=== PATIENT | female | born 1990 | race Caucasian/White ===

== ENCOUNTER 2022-01-24 11:46 | Inpatient (IN) ==
[2022-01-24] MEDS ORDERED: OXYTOCIN 30 UNITS/500 ML BAG IV PRN ×2 (12:20→20:40)
--- NOTE | 2022-01-24 12:22 | History & Physical Report ---
Date of Service January 24, 2022 Assessment & Plan (1) Encounter for supervision of normal intrauterine in primigravida, antepartum: Plan: Sterile spec exam performed pooling is present nitrazine present patient is obviously ruptured her cervix is examined found to be long thick close palpated as vertex -3 station The patient expressed her plan and also does not wish intervention at this early stage with regard to augmentation of labor she is feeling some minimal contractions we discussed following this for now and reassessing later we discussed the risks of prolonged rupture membranes which can include infection both of the fetus and mother she will be admitted COVID swabbed as per protocol History of Present Illness Primary Care Provider: NO PCP LUIS Calculator Estimated Delivery Date Method Current WG Current Estimate 02/02/22 LMP (Certain) 37w 6d LMP: 04/28/21 : 1 Full term: 0 Premature: 0 Total Number of Induced Abortions: 0 Total Number of Spontaneous Abortions: 0 Ectopics: 0 Multiple births: 0 Number of Living Children: 0 and Delivery Plans COVID POSITIVE 06/28/21 (SX STARTED 06/22/21) Pfizer COVID vaccine #1 on 09/22/20 Pfizer COVID vaccine #2 on 10/13/20 Allergies Allergy/AdvReac Type Severity Reaction Status Date / Time No Known Allergies Allergy Verified 01/18/22 14:18 Home Medications Medication Instructions Recorded Confirmed Type prenat.vits,adriel,aix-giab-yfdea PO 10/18/21 01/18/22 History breast pump #1 ea 11/30/21 01/18/22 Rx Patient History Medical History (Updated 06/22/21 @ 11:31 by Joyce SUNG RN) Brain concussion Chicken pox Lyme disease Migraines Surgical History [place] teeth extracted Family History (Updated 06/22/21 @ 11:32 by Joyce SUNG RN) Aunt Breast cancer paternal Hypertension Stroke Grandfather (Maternal) Colorectal cancer Grandmother (Paternal) FH: kidney cancer Afib Grandmother (Maternal) Afib Hypertension Diabetes Mother Irregular heart rhythm Hypertension Grandfather (Paternal) Parkinson disease Denies family history of Ovarian cancer Prostate cancer Lung cancer Social History (Updated 06/22/21 @ 11:00 by Joyce E MCCLINTIC, RN) Smoking Status: Never smoker Hx Alcohol Use: Yes Alcohol Intake Frequency Comment: 1 every other week Hx Substance Use: No Preferred Language: Samoan Communication Ability: Effective marital status: marital status details: Angus Truong (29) [phone] Current Living Situation: Significant Other Current Living Situation Comment: and 1 dog current occupational status: employed current occupation: [employer] Feels Safe at Home: Yes Results & Data ([facility]) Vital Signs (Past 12 Hours) Vital Signs Pulse BP 01/24/22 12:09 101 H 121/71 Coding Level of Care Code None Diagnoses Encounter for supervision of normal intrauterine in primigravida, antepartum Z34.00
[2022-01-24 12:41] LABS: Hematocrit (blood only) 34.2 % (34.1-44.9); Hemoglobin 11.3 g/dl (12.0-16.0); Mean Corpuscular Hemoglobin 29.7 pg (25.0-34.0); Mean Corpuscular Volume 89.8 fL (80.0-100.0); Mean Platelet Volume 9.6 fL (9.4-12.3); Platelet Count 287 K/uL (130-400); RDW Coefficient of Variation 13.5 % (11.5-14.5); RDW Standard Deviation 44.4 fL (36.4-46.3); Red Blood Count 3.81 M/uL (3.93-5.22); White Blood Count 13.86 K/ul (4.8-10.8)
--- NOTE | 2022-01-24 16:41 | Labor Progress Brief Note ---
Date of Service January 24, 2022 Still declining intervention at this stage heart rate is category 1 Assessment & Plan Admission and Anticipated Discharge Date Admission Date: January 24, 2022 Results & Data ([facility]) Vital Signs (Past 12 Hours) Vital Signs Temp Pulse Resp BP 01/24/22 14:00 97.7 F 18 01/24/22 15:56 98.2 F 82 18 112/69 01/24/22 14:00 18 01/24/22 14:00 97.7 F 18 01/24/22 12:09 101 H 121/71 01/24/22 12:09 98.2 F 18 Coding Level of Care Code None
--- NOTE | 2022-01-24 19:03 | Labor Progress Brief Note ---
Date of Service January 24, 2022 Patient has been ruptured membranes since 830 this morning she has walked around as she has not desired augmentation at this stage we sat down and discussed the situation she is not having medically contraction despite ambulating fairly well she is still leaking clear fluid there is no signs of chorioamnionitis and she is GBS negative I recommended augmentation I discussed the option of Cytotec p.o. versus IV Pitocin discussed the risks and benefits I also discussed the risks of infection with prolonged rupture of membranes they understand the recommendations and will think about this Assessment & Plan Admission and Anticipated Discharge Date Admission Date: January 24, 2022 Results & Data ([facility]) Vital Signs (Past 12 Hours) Vital Signs Temp Pulse Resp BP 01/24/22 14:00 97.7 F 18 01/24/22 18:00 16 01/24/22 18:00 97.9 F 16 01/24/22 17:49 85 129/71 01/24/22 15:56 98.2 F 82 18 112/69 01/24/22 14:00 18 01/24/22 14:00 97.7 F 18 01/24/22 12:09 101 H 121/71 01/24/22 12:09 98.2 F 18 Coding Level of Care Code None
[2022-01-24] MEDS: LACTATED RINGER'S 1,000 ML IV PRN (21:09)
[2022-01-25] MEDS: LACTATED RINGER'S 1,000 ML IV PRN ×3 (05:10→14:44)
[2022-01-25] MEDS ORDERED: ePHEDrine sulfate 50 MG/ML AMP ONE (05:23)
[2022-01-25] MEDS ORDERED: LIDOCAINE 2%/EPINEPHRINE 1:200,000 20 ML SDV ONE (05:24)
[2022-01-25] MEDS ORDERED: SODIUM CHLORIDE 0.9% INJ 10 ML VIAL ONE (05:24)
[2022-01-25] MEDS ORDERED: fentaNYL 2MCG/ML ROPIVACAINE 1.25MG/ML 100 ML BAG EPI ONE (05:24)
[2022-01-25] MEDS ORDERED: BUPIVACAINE 0.25% 30 ML VIAL ONE (05:24)
[2022-01-25] MEDS ORDERED: fentaNYL citrate 100 MCG/2 ML VIAL ONE (05:24)
--- NOTE | 2022-01-25 05:46 | Anesthesiology Consultation ---
Date of Service January 25, 2022 Assessment & Plan (1) Encounter for pre-operative examination: Chart Review Chart Review: Acceptable Risk for Labor Epidural History Height/Weight Height: 5 ft 5 in Weight: 92.533 kg Allergies Allergy/AdvReac Type Severity Reaction Status Date / Time No Known Allergies Allergy Verified 01/24/22 13:30 Medications Home Medications Medication Instructions Recorded Confirmed Last Taken breast pump #1 ea 11/30/21 01/18/22 Unknown prenat.vits,adriel,iyc-awvy-ybfbe 1 tab PO DAILY 01/24/22 01/24/22 01/24/22 11:00 Active Medications Generic Name Dose Route Start Last Admin Trade Name Freq PRN Reason Stop Dose Admin Lactated Ringer's 1,000 mls @ 125 mls/hr 01/24/22 12:20 01/25/22 05:10 Lr IV 01/26/22 12:19 125 mls/hr .Q8H PRN Administration L&D Protocol Protocol Oxytocin 30 units in 500 mls @ 6 mls/hr 01/24/22 20:40 01/25/22 05:00 Pitocin IV 01/26/22 20:39 0.42 units/hr .Q24H PRN 7 mls/hr Labor Induction/Augmentation Titration Protocol 0.36 UNITS/HR Past Medical History Medical History Brain concussion Chicken pox Lyme disease Migraines Past Family History Family History Aunt Breast cancer paternal Hypertension Stroke Grandfather (Maternal) Colorectal cancer Grandmother (Paternal) FH: kidney cancer Afib Grandmother (Maternal) Afib Hypertension Diabetes Mother Irregular heart rhythm Hypertension Grandfather (Paternal) Parkinson disease Denies family history of Ovarian cancer Prostate cancer Lung cancer Past Surgical History Surgical History [place] teeth extracted Social History Smoking Status: Never smoker Do You Dip or Chew Tobacco: No Hx Alcohol Use: Yes Hx Substance Use: No substance use type: does not use Physical Exam Vital Signs Last Vital Signs Temp 36.6 C 01/25/22 05:00 Pulse 64 01/25/22 04:52 Resp 18 01/25/22 01:32 BP 101/69 01/25/22 04:52 Testing Laboratory Results 01/24/22 12:32
[2022-01-25] MEDS ORDERED: NALOXONE HCL 0.4 MG/1 ML VIAL/CARP IV PRN (06:12)
[2022-01-25] MEDS ORDERED: ONDANSETRON INJ 2 MG/ML 2 ML VIAL IV PRN (06:12)
[2022-01-25] MEDS ORDERED: NALOXONE HCL 1 MG in SODIUM CHLORIDE 0.9% 1000ML 1,000 ML IV PRN (06:12)
[2022-01-25] MEDS ORDERED: ePHEDrine sulfate 50 MG/ML AMP IV PRN (06:12)
[2022-01-25] MEDS ORDERED: fentaNYL 2MCG/ML ROPIVACAINE 1.25MG/ML 100 ML BAG EPI PRN (06:12)
--- NOTE | 2022-01-25 07:23 | Labor Progress Brief Note ---
Date of Service January 25, 2022 Patient did agree to Pitocin last night this was started requested epidural and she is now comfortable the patient has declined cervical checks since recommend checking her cervix when she is fully comfortable with the epidural Assessment & Plan Admission and Anticipated Discharge Date Admission Date: January 24, 2022 Results & Data ([facility]) Vital Signs (Past 12 Hours) Vital Signs Temp Pulse Resp BP Pulse Ox 01/25/22 07:20 69 98 01/25/22 07:15 76 99 01/25/22 07:10 75 99 01/25/22 07:09 63 118/63 01/25/22 07:05 78 98 01/25/22 07:00 76 98 01/25/22 06:55 76 97 01/25/22 06:54 67 111/62 01/25/22 06:50 79 99 01/25/22 06:45 81 100 01/25/22 06:40 71 98 01/25/22 06:35 74 114/69 98 01/25/22 06:32 73 105/66 01/25/22 06:30 79 100 01/25/22 06:29 79 107/64 01/25/22 06:25 74 99 01/25/22 06:26 115 H 105/61 01/25/22 06:23 78 102/65 01/25/22 06:20 100 01/25/22 06:20 75 01/25/22 06:20 71 100/68 01/25/22 06:17 81 106/63 01/25/22 06:15 73 100 01/25/22 06:14 71 100/55 L 01/25/22 06:11 69 100/59 L 01/25/22 06:10 68 100 01/25/22 06:08 71 99/55 L 01/25/22 06:05 78 99 01/25/22 06:02 82 108/68 01/25/22 06:00 86 100 01/25/22 05:59 93 H 110/72 01/25/22 05:55 85 100 01/25/22 05:53 83 111/78 01/25/22 05:50 100 01/25/22 05:50 87 01/25/22 05:50 78 113/73 01/25/22 05:00 97.9 F 01/25/22 04:52 64 101/69 01/25/22 04:21 68 106/56 L 01/25/22 03:51 70 116/60 01/25/22 03:21 77 110/74 01/25/22 02:52 98.1 F 01/25/22 02:53 89 116/66 01/25/22 02:25 85 111/66 01/25/22 01:51 86 102/65 01/25/22 01:32 18 01/25/22 01:32 98.1 F 18 01/25/22 01:21 88 115/69 01/25/22 00:50 76 111/68 01/25/22 00:24 87 118/58 L 01/24/22 23:51 87 114/65 01/24/22 23:20 78 103/64 01/24/22 21:10 18 01/24/22 21:10 98.1 F 18 01/24/22 23:00 18 01/24/22 23:00 97.3 F L 18 01/24/22 22:52 77 110/69 01/24/22 22:20 82 110/70 01/24/22 21:50 77 110/63 Coding Level of Care Code None
--- NOTE | 2022-01-25 09:37 | Labor Progress Brief Note ---
Date of Service January 25, 2022 Subjective Pt comfortable w/ epidural. Decel was noted on pit at 9, pit was turned off and fetus recovered. Assessment & Plan (1) PROM (premature rupture of membranes): Plan: 31 y/o G1 at 38 6/7 wga admitted w/ prom VSS Fetus now cat 1 after decel PROM - pt desired minimal intervention yesterday declining cervical checks. She did accept pitocin last evening and epidural this AM. SVE is as above. Reviewed decel with pt as well as clinical stability currently, no obvious signs of chorio. Discussed rec to continue augmentation as I don't think she will likely progress on her own at this point as it has been >24hrs since water broke and she is in agreement to continue. Discussed as she is so far out from rom, there is possibility that baby may not tolerate the stress of contractions and she is aware as well. I reviewed plan with her and she did note may want a second opinion if CS recommended. Discussed if it is an emergency situation, I would not recommend discussion as it affects the wellbeing of her child. Discussed if it is a matter of tolerating labor or lack of progression, I am happy to continue discussing but there is not another provider administrative professional and she verbalized understanding as well. Will continue pit for now and continue monitoring GBS neg epidural in place Admission and Anticipated Discharge Date Admission Date: January 24, 2022 Physical Exam Genitourinary: Manual OB Exam: + cervical dilation 3 cm, + cervical effacement 50% and + station -2 OB Exam Monitor Tracing: + external FHT monitor used, + external uterine monitor used (q8 with pitocin off) and + category I (135/mod/+accel/-decel) Results & Data ([facility]) Vital Signs (Past 12 Hours) Vital Signs Temp Pulse Resp BP Pulse Ox 01/25/22 07:00 98.1 F 18 01/25/22 09:25 75 98 01/25/22 09:24 74 105/64 01/25/22 09:20 71 99 01/25/22 09:19 18 01/25/22 09:19 97.7 F 18 01/25/22 09:15 78 98 01/25/22 09:10 74 97/53 L 100 01/25/22 09:05 74 100 01/25/22 09:00 68 100 01/25/22 08:55 100 01/25/22 08:55 75 01/25/22 08:55 63 101/60 01/25/22 08:50 74 100 01/25/22 08:45 72 100 01/25/22 08:40 80 100 01/25/22 08:38 65 92/54 L 01/25/22 08:35 75 100 01/25/22 08:30 71 100 01/25/22 08:25 65 87/52 L 100 01/25/22 08:20 67 100 01/25/22 08:15 79 100 01/25/22 08:14 70 104/56 L 01/25/22 08:10 70 97 01/25/22 08:09 72 87/52 L 01/25/22 08:05 72 97 01/25/22 08:00 97 01/25/22 08:00 71 01/25/22 08:00 73 94 01/25/22 07:55 73 98 01/25/22 07:53 63 90/50 L 01/25/22 07:50 70 97 01/25/22 07:45 80 97 01/25/22 07:40 74 99 01/25/22 07:39 72 92/54 L 01/25/22 07:35 79 97 01/25/22 07:30 75 18 98 01/25/22 07:25 98 01/25/22 07:25 67 01/25/22 07:25 65 91/51 L 01/25/22 07:20 69 98 01/25/22 07:15 76 99 01/25/22 07:10 75 99 01/25/22 07:09 63 118/63 01/25/22 07:05 78 98 01/25/22 07:00 76 18 98 01/25/22 06:55 76 97 01/25/22 06:54 67 111/62 01/25/22 06:50 79 99 01/25/22 06:45 81 100 01/25/22 06:40 71 98 01/25/22 06:35 74 114/69 98 01/25/22 06:32 73 105/66 01/25/22 06:30 79 100 01/25/22 06:29 79 107/64 01/25/22 06:25 74 99 01/25/22 06:26 115 H 105/61 01/25/22 06:23 78 102/65 01/25/22 06:20 100 01/25/22 06:20 75 01/25/22 06:20 71 100/68 01/25/22 06:17 81 106/63 01/25/22 06:15 73 100 01/25/22 06:14 71 100/55 L 01/25/22 06:11 69 100/59 L 01/25/22 06:10 68 100 01/25/22 06:08 71 99/55 L 01/25/22 06:05 78 99 01/25/22 06:02 82 108/68 01/25/22 06:00 86 100 01/25/22 05:59 93 H 110/72 01/25/22 05:55 85 100 01/25/22 05:53 83 111/78 01/25/22 05:50 100 01/25/22 05:50 87 01/25/22 05:50 78 113/73 01/25/22 05:00 97.9 F 01/25/22 04:52 64 101/69 01/25/22 04:21 68 106/56 L 01/25/22 03:51 70 116/60 01/25/22 03:21 77 110/74 01/25/22 02:52 98.1 F 01/25/22 02:53 89 116/66 01/25/22 02:25 85 111/66 01/25/22 01:51 86 102/65 01/25/22 01:32 18 01/25/22 01:32 98.1 F 01/25/22 01:21 88 115/69 01/25/22 00:50 76 111/68 01/25/22 00:24 87 118/58 L 01/24/22 23:51 87 114/65 01/24/22 23:20 78 103/64 01/24/22 23:00 18 01/24/22 23:00 97.3 F L 18 01/24/22 22:52 77 110/69 01/24/22 22:20 82 110/70 01/24/22 21:50 77 110/63 Coding Level of Care Code None Diagnoses PROM (premature rupture of membranes) O42.90
--- NOTE | 2022-01-25 12:35 | Labor Progress Brief Note ---
Date of Service January 25, 2022 Subjective Pt comfortable Assessment & Plan (1) PROM (premature rupture of membranes): Plan: 31 y/o G1 at 38 6/7 wga admitted w/ prom VSS Fetus cat 2 but reassuring PROM - pit just increased to 7, not much change in cervix but certainly no where near adequate. Will continue induction as baby tolerates it GBS neg epidural in place Admission and Anticipated Discharge Date Admission Date: January 24, 2022 Physical Exam Genitourinary: Manual OB Exam: + cervical dilation 3 cm, + cervical effacement 50% and + station -2 OB Exam Monitor Tracing: + external FHT monitor used, + external uterine monitor used (q5) and + category II (135/mod/+accel/early and intermittent variables noted) Results & Data ([facility]) Vital Signs (Past 12 Hours) Vital Signs Temp Pulse Resp BP Pulse Ox 01/25/22 10:40 98.2 F 18 01/25/22 07:00 98.1 F 18 01/25/22 12:30 65 97 01/25/22 12:25 75 97 01/25/22 12:23 88 99/60 L 01/25/22 12:20 73 98 01/25/22 12:15 67 97 01/25/22 12:10 98 H 96 01/25/22 12:09 67 102/60 01/25/22 12:05 75 96 01/25/22 12:00 76 96 01/25/22 11:55 69 97 01/25/22 11:54 66 104/65 01/25/22 11:50 81 97 01/25/22 11:45 88 96 01/25/22 11:40 82 97 01/25/22 11:39 72 106/67 01/25/22 11:35 85 97 01/25/22 11:30 79 96 01/25/22 11:25 75 96 01/25/22 11:23 84 116/66 01/25/22 11:20 78 97 01/25/22 11:15 73 99 01/25/22 11:10 67 98 01/25/22 11:09 72 99/58 L 01/25/22 11:05 74 99 01/25/22 11:00 75 99 01/25/22 10:55 68 99 01/25/22 10:54 72 97/55 L 01/25/22 10:50 73 98 01/25/22 10:45 80 97 01/25/22 10:40 70 98 01/25/22 10:39 93 H 111/57 L 01/25/22 10:35 81 98 01/25/22 10:30 87 18 99 01/25/22 10:25 78 98 01/25/22 10:23 82 108/64 01/25/22 10:20 81 98 01/25/22 10:15 82 99 01/25/22 10:10 79 99 01/25/22 10:08 93 H 105/70 01/25/22 10:05 94 H 99 01/25/22 10:00 77 18 97 01/25/22 09:55 71 98 01/25/22 09:53 71 103/63 01/25/22 09:50 73 97 01/25/22 08:00 18 01/25/22 08:00 18 01/25/22 09:45 78 100 01/25/22 09:40 83 98 01/25/22 09:38 85 112/76 01/25/22 09:35 76 99 01/25/22 09:30 68 18 98 01/25/22 09:25 75 98 01/25/22 09:24 74 105/64 01/25/22 09:20 71 99 01/25/22 09:19 18 01/25/22 09:19 97.7 F 18 01/25/22 09:15 78 98 01/25/22 09:10 74 97/53 L 100 01/25/22 09:05 74 100 01/25/22 09:00 68 18 100 01/25/22 08:55 100 01/25/22 08:55 75 01/25/22 08:55 63 101/60 01/25/22 08:50 74 100 01/25/22 08:45 72 100 01/25/22 08:40 80 100 01/25/22 08:38 65 92/54 L 01/25/22 08:35 75 100 01/25/22 08:30 71 18 100 01/25/22 08:25 65 87/52 L 100 01/25/22 08:20 67 100 01/25/22 08:15 79 100 01/25/22 08:14 70 104/56 L 01/25/22 08:10 70 97 01/25/22 08:09 72 87/52 L 01/25/22 08:05 72 97 01/25/22 08:00 97 01/25/22 08:00 71 01/25/22 08:00 73 94 01/25/22 07:55 73 98 01/25/22 07:53 63 90/50 L 01/25/22 07:50 70 97 01/25/22 07:45 80 97 01/25/22 07:40 74 99 01/25/22 07:39 72 92/54 L 01/25/22 07:35 79 97 01/25/22 07:30 75 18 98 01/25/22 07:25 98 01/25/22 07:25 67 01/25/22 07:25 65 91/51 L 01/25/22 07:20 69 98 01/25/22 07:15 76 99 01/25/22 07:10 75 99 01/25/22 07:09 63 118/63 01/25/22 07:05 78 98 01/25/22 07:00 76 18 98 01/25/22 06:55 76 97 01/25/22 06:54 67 111/62 01/25/22 06:50 79 99 01/25/22 06:45 81 100 01/25/22 06:40 71 98 01/25/22 06:35 74 114/69 98 01/25/22 06:32 73 105/66 01/25/22 06:30 79 100 01/25/22 06:29 79 107/64 01/25/22 06:25 74 99 01/25/22 06:26 115 H 105/61 01/25/22 06:23 78 102/65 01/25/22 06:20 100 01/25/22 06:20 75 01/25/22 06:20 71 100/68 01/25/22 06:17 81 106/63 01/25/22 06:15 73 100 01/25/22 06:14 71 100/55 L 01/25/22 06:11 69 100/59 L 01/25/22 06:10 68 100 01/25/22 06:08 71 99/55 L 01/25/22 06:05 78 99 01/25/22 06:02 82 108/68 01/25/22 06:00 86 100 01/25/22 05:59 93 H 110/72 01/25/22 05:55 85 100 01/25/22 05:53 83 111/78 01/25/22 05:50 100 01/25/22 05:50 87 01/25/22 05:50 78 113/73 01/25/22 05:00 97.9 F 01/25/22 04:52 64 101/69 01/25/22 04:21 68 106/56 L 01/25/22 03:51 70 116/60 01/25/22 03:21 77 110/74 01/25/22 02:52 98.1 F 01/25/22 02:53 89 116/66 01/25/22 02:25 85 111/66 01/25/22 01:51 86 102/65 01/25/22 01:32 18 01/25/22 01:32 98.1 F 18 01/25/22 01:21 88 115/69 01/25/22 00:50 76 111/68 Coding Level of Care Code None Diagnoses PROM (premature rupture of membranes) O42.90
--- NOTE | 2022-01-25 14:44 | Labor Progress Brief Note ---
Date of Service January 25, 2022 Subjective Pt comfortable Assessment & Plan (1) PROM (premature rupture of membranes): Plan: 31 y/o G1 at 38 6/7 wga admitted w/ prom VSS Fetus cat 2 but still with mod variability, min variabiilty is intermittent PROM - pit at 13, some progress noted. Discussed I think ok to continue but discussed parameters that would be concerned about continuing and they verbalize understanding GBS neg epidural in place Admission and Anticipated Discharge Date Admission Date: January 24, 2022 Physical Exam Genitourinary: Manual OB Exam: + cervical dilation 4 cm, + cervical effacement 70% and + station -2 OB Exam Monitor Tracing: + external FHT monitor used, + external uterine monitor used (q4-5) and + category II (135/min-mod/+accel/early and intermittent variables noted) Results & Data ([facility]) Vital Signs (Past 12 Hours) Vital Signs Temp Pulse Resp BP Pulse Ox 01/25/22 10:40 98.2 F 18 01/25/22 07:00 98.1 F 18 01/25/22 14:40 83 97 01/25/22 14:35 87 99 01/25/22 14:30 88 98 01/25/22 14:25 98 01/25/22 14:25 84 01/25/22 14:25 80 119/61 01/25/22 14:20 86 97 01/25/22 14:16 18 01/25/22 14:16 18 01/25/22 14:15 87 97 01/25/22 14:10 84 97 01/25/22 14:08 86 110/63 01/25/22 14:05 81 96 01/25/22 14:00 73 18 97 01/25/22 13:55 84 97 01/25/22 13:54 77 112/63 01/25/22 13:50 83 97 01/25/22 13:45 89 96 01/25/22 13:40 77 97 01/25/22 13:39 73 115/59 L 01/25/22 13:35 77 97 01/25/22 13:29 98.4 F 01/25/22 13:30 76 18 97 01/25/22 13:25 97 01/25/22 13:25 76 01/25/22 13:25 76 116/64 01/25/22 13:20 89 97 01/25/22 13:15 86 98 01/25/22 13:10 73 98 01/25/22 13:08 81 110/70 01/25/22 13:05 81 97 01/25/22 13:00 84 18 98 01/25/22 12:55 79 97 01/25/22 12:54 73 109/67 01/25/22 12:50 83 97 01/25/22 12:45 80 97 01/25/22 12:40 98 01/25/22 12:40 81 01/25/22 12:40 68 100/57 L 01/25/22 12:39 18 01/25/22 12:39 98.2 F 18 01/25/22 12:35 77 97 01/25/22 12:30 65 18 97 01/25/22 12:25 75 97 01/25/22 12:23 88 99/60 L 01/25/22 12:20 73 98 01/25/22 12:15 67 97 01/25/22 12:10 98 H 96 01/25/22 12:09 67 102/60 01/25/22 12:05 75 96 01/25/22 12:00 76 18 96 01/25/22 11:55 69 97 01/25/22 11:54 66 104/65 01/25/22 11:50 81 97 01/25/22 11:45 88 96 01/25/22 11:40 82 97 01/25/22 11:39 72 106/67 01/25/22 11:35 85 97 01/25/22 11:30 79 18 96 01/25/22 11:25 75 96 01/25/22 11:23 84 116/66 01/25/22 11:20 78 97 01/25/22 11:15 73 99 01/25/22 11:10 67 98 01/25/22 11:09 72 99/58 L 01/25/22 11:05 74 99 01/25/22 11:00 75 99 01/25/22 10:55 68 99 01/25/22 10:54 72 97/55 L 01/25/22 10:50 73 98 01/25/22 10:45 80 97 01/25/22 10:40 70 98 01/25/22 10:39 93 H 111/57 L 01/25/22 10:35 81 98 01/25/22 10:30 87 18 99 01/25/22 10:25 78 98 01/25/22 10:23 82 108/64 01/25/22 10:20 81 98 01/25/22 10:15 82 99 01/25/22 10:10 79 99 01/25/22 10:08 93 H 105/70 01/25/22 10:05 94 H 99 01/25/22 10:00 77 18 97 01/25/22 09:55 71 98 01/25/22 09:53 71 103/63 01/25/22 09:50 73 97 01/25/22 08:00 18 01/25/22 08:00 18 01/25/22 09:45 78 100 01/25/22 09:40 83 98 01/25/22 09:38 85 112/76 01/25/22 09:35 76 99 01/25/22 09:30 68 18 98 01/25/22 09:25 75 98 01/25/22 09:24 74 105/64 01/25/22 09:20 71 99 01/25/22 09:19 18 01/25/22 09:19 97.7 F 18 01/25/22 09:15 78 98 01/25/22 09:10 74 97/53 L 100 01/25/22 09:05 74 100 01/25/22 09:00 68 18 100 01/25/22 08:55 100 01/25/22 08:55 75 01/25/22 08:55 63 101/60 01/25/22 08:50 74 100 01/25/22 08:45 72 100 01/25/22 08:40 80 100 01/25/22 08:38 65 92/54 L 01/25/22 08:35 75 100 01/25/22 08:30 71 18 100 01/25/22 08:25 65 87/52 L 100 01/25/22 08:20 67 100 01/25/22 08:15 79 100 01/25/22 08:14 70 104/56 L 01/25/22 08:10 70 97 01/25/22 08:09 72 87/52 L 01/25/22 08:05 72 97 01/25/22 08:00 97 01/25/22 08:00 71 01/25/22 08:00 73 94 01/25/22 07:55 73 98 01/25/22 07:53 63 90/50 L 01/25/22 07:50 70 97 01/25/22 07:45 80 97 01/25/22 07:40 74 99 01/25/22 07:39 72 92/54 L 01/25/22 07:35 79 97 01/25/22 07:30 75 18 98 01/25/22 07:25 98 01/25/22 07:25 67 01/25/22 07:25 65 91/51 L 01/25/22 07:20 69 98 01/25/22 07:15 76 99 01/25/22 07:10 75 99 01/25/22 07:09 63 118/63 01/25/22 07:05 78 98 01/25/22 07:00 76 18 98 01/25/22 06:55 76 97 01/25/22 06:54 67 111/62 01/25/22 06:50 79 99 01/25/22 06:45 81 100 01/25/22 06:40 71 98 01/25/22 06:35 74 114/69 98 01/25/22 06:32 73 105/66 01/25/22 06:30 79 100 01/25/22 06:29 79 107/64 01/25/22 06:25 74 99 01/25/22 06:26 115 H 105/61 01/25/22 06:23 78 102/65 01/25/22 06:20 100 01/25/22 06:20 75 01/25/22 06:20 71 100/68 01/25/22 06:17 81 106/63 01/25/22 06:15 73 100 01/25/22 06:14 71 100/55 L 01/25/22 06:11 69 100/59 L 01/25/22 06:10 68 100 01/25/22 06:08 71 99/55 L 01/25/22 06:05 78 99 01/25/22 06:02 82 108/68 01/25/22 06:00 86 100 01/25/22 05:59 93 H 110/72 01/25/22 05:55 85 100 01/25/22 05:53 83 111/78 08/03/22 05:50 100 01/25/22 05:50 87 01/25/22 05:50 78 113/73 01/25/22 05:00 97.9 F 01/25/22 04:52 64 101/69 01/25/22 04:21 68 106/56 L 01/25/22 03:51 70 116/60 01/25/22 03:21 77 110/74 01/25/22 02:52 98.1 F 01/25/22 02:53 89 116/66 Coding Level of Care Code None Diagnoses PROM (premature rupture of membranes) O42.90
--- NOTE | 2022-01-25 16:36 | Labor Progress Brief Note ---
Date of Service January 25, 2022 Subjective feels pressure Assessment & Plan (1) PROM (premature rupture of membranes): Plan: 31 y/o G1 at 38 6/7 wga admitted w/ prom VSS Fetus cat 2 but still with mod variability, min variabiilty is intermittent. Seems like decels are more early PROM - pit at 19, progress noted. Continue augmentation, ok to go above 20 as long as tolerated by fetus GBS neg epidural in place Admission and Anticipated Discharge Date Admission Date: January 24, 2022 Physical Exam Genitourinary: Manual OB Exam: + cervical dilation 5 cm, + cervical effacement 70% and + station -1 OB Exam Monitor Tracing: + external FHT monitor used, + external uterine monitor used (q3-5) and + category II (135/min-mod/+accel/early and intermittent variables noted) Results & Data ([facility]) Vital Signs (Past 12 Hours) Vital Signs Temp Pulse Resp BP Pulse Ox 01/25/22 10:40 98.2 F 18 01/25/22 07:00 98.1 F 18 01/25/22 16:30 79 99 01/25/22 16:25 75 99 01/25/22 16:24 75 107/70 01/25/22 16:20 77 98 01/25/22 16:15 72 99 01/25/22 16:10 78 99 01/25/22 16:08 86 113/63 01/25/22 16:05 88 98 01/25/22 16:00 77 18 98 01/25/22 15:55 77 98 01/25/22 15:53 68 106/57 L 01/25/22 15:50 78 97 01/25/22 15:45 73 98 01/25/22 15:40 73 98 01/25/22 15:39 72 117/60 01/25/22 15:35 75 97 01/25/22 15:30 79 18 98 01/25/22 15:25 75 99 01/25/22 15:20 75 98 01/25/22 15:15 81 97 01/25/22 15:10 71 98 01/25/22 15:09 70 115/56 L 01/25/22 15:05 82 97 01/25/22 15:00 83 18 97 01/25/22 14:55 79 97 01/25/22 14:54 77 111/55 L 01/25/22 14:50 84 97 01/25/22 14:45 80 97 01/25/22 14:41 18 01/25/22 14:41 98.2 F 18 01/25/22 14:40 83 97 01/25/22 14:35 87 99 01/25/22 14:30 88 18 98 01/25/22 14:25 98 01/25/22 14:25 84 01/25/22 14:25 80 119/61 01/25/22 14:20 86 97 01/25/22 14:16 18 01/25/22 14:16 18 01/25/22 14:15 87 97 01/25/22 14:10 84 97 01/25/22 14:08 86 110/63 01/25/22 14:05 81 96 01/25/22 14:00 73 18 97 01/25/22 13:55 84 97 01/25/22 13:54 77 112/63 01/25/22 13:50 83 97 01/25/22 13:45 89 96 01/25/22 13:40 77 97 01/25/22 13:39 73 115/59 L 01/25/22 13:35 77 97 01/25/22 13:29 98.4 F 01/25/22 13:30 76 18 97 01/25/22 13:25 97 01/25/22 13:25 76 01/25/22 13:25 76 116/64 01/25/22 13:20 89 97 01/25/22 13:15 86 98 01/25/22 13:10 73 98 01/25/22 13:08 81 110/70 01/25/22 13:05 81 97 01/25/22 13:00 84 18 98 01/25/22 12:55 79 97 01/25/22 12:54 73 109/67 01/25/22 12:50 83 97 01/25/22 12:45 80 97 01/25/22 12:40 98 01/25/22 12:40 81 01/25/22 12:40 68 100/57 L 01/25/22 12:39 18 01/25/22 12:39 98.2 F 18 01/25/22 12:35 77 97 01/25/22 12:30 65 18 97 01/25/22 12:25 75 97 08/03/22 12:23 88 99/60 L 01/25/22 12:20 73 98 01/25/22 12:15 67 97 01/25/22 12:10 98 H 96 01/25/22 12:09 67 102/60 01/25/22 12:05 75 96 01/25/22 12:00 76 18 96 01/25/22 11:55 69 97 01/25/22 11:54 66 104/65 01/25/22 11:50 81 97 01/25/22 11:45 88 96 01/25/22 11:40 82 97 01/25/22 11:39 72 106/67 01/25/22 11:35 85 97 01/25/22 11:30 79 18 96 01/25/22 11:25 75 96 01/25/22 11:23 84 116/66 01/25/22 11:20 78 97 01/25/22 11:15 73 99 01/25/22 11:10 67 98 01/25/22 11:09 72 99/58 L 01/25/22 11:05 74 99 01/25/22 11:00 75 99 01/25/22 10:55 68 99 01/25/22 10:54 72 97/55 L 01/25/22 10:50 73 98 01/25/22 10:45 80 97 01/25/22 10:40 70 98 01/25/22 10:39 93 H 111/57 L 01/25/22 10:35 81 98 01/25/22 10:30 87 18 99 01/25/22 10:25 78 98 01/25/22 10:23 82 108/64 01/25/22 10:20 81 98 01/25/22 10:15 82 99 01/25/22 10:10 79 99 01/25/22 10:08 93 H 105/70 01/25/22 10:05 94 H 99 01/25/22 10:00 77 18 97 01/25/22 09:55 71 98 01/25/22 09:53 71 103/63 01/25/22 09:50 73 97 01/25/22 08:00 18 01/25/22 08:00 18 01/25/22 09:45 78 100 01/25/22 09:40 83 98 01/25/22 09:38 85 112/76 01/25/22 09:35 76 99 01/25/22 09:30 68 18 98 01/25/22 09:25 75 98 01/25/22 09:24 74 105/64 01/25/22 09:20 71 99 01/25/22 09:19 18 01/25/22 09:19 97.7 F 18 01/25/22 09:15 78 98 01/25/22 09:10 74 97/53 L 100 01/25/22 09:05 74 100 01/25/22 09:00 68 18 100 01/25/22 08:55 100 01/25/22 08:55 75 01/25/22 08:55 63 101/60 01/25/22 08:50 74 100 01/25/22 08:45 72 100 01/25/22 08:40 80 100 01/25/22 08:38 65 92/54 L 01/25/22 08:35 75 100 01/25/22 08:30 71 18 100 01/25/22 08:25 65 87/52 L 100 01/25/22 08:20 67 100 01/25/22 08:15 79 100 01/25/22 08:14 70 104/56 L 01/25/22 08:10 70 97 01/25/22 08:09 72 87/52 L 01/25/22 08:05 72 97 01/25/22 08:00 97 01/25/22 08:00 71 01/25/22 08:00 73 94 01/25/22 07:55 73 98 01/25/22 07:53 63 90/50 L 01/25/22 07:50 70 97 01/25/22 07:45 80 97 01/25/22 07:40 74 99 01/25/22 07:39 72 92/54 L 01/25/22 07:35 79 97 01/25/22 07:30 75 18 98 01/25/22 07:25 98 01/25/22 07:25 67 01/25/22 07:25 65 91/51 L 01/25/22 07:20 69 98 01/25/22 07:15 76 99 01/25/22 07:10 75 99 01/25/22 07:09 63 118/63 01/25/22 07:05 78 98 01/25/22 07:00 76 18 98 01/25/22 06:55 76 97 01/25/22 06:54 67 111/62 01/25/22 06:50 79 99 01/25/22 06:45 81 100 01/25/22 06:40 71 98 01/25/22 06:35 74 114/69 98 01/25/22 06:32 73 105/66 01/25/22 06:30 79 100 01/25/22 06:29 79 107/64 01/25/22 06:25 74 99 01/25/22 06:26 115 H 105/61 01/25/22 06:23 78 102/65 01/25/22 06:20 100 01/25/22 06:20 75 01/25/22 06:20 71 100/68 01/25/22 06:17 81 106/63 01/25/22 06:15 73 100 01/25/22 06:14 71 100/55 L 01/25/22 06:11 69 100/59 L 01/25/22 06:10 68 100 01/25/22 06:08 71 99/55 L 01/25/22 06:05 78 99 01/25/22 06:02 82 108/68 01/25/22 06:00 86 100 01/25/22 05:59 93 H 110/72 01/25/22 05:55 85 100 01/25/22 05:53 83 111/78 01/25/22 05:50 100 01/25/22 05:50 87 01/25/22 05:50 78 113/73 01/25/22 05:00 97.9 F 01/25/22 04:52 64 101/69 Coding Level of Care Code None Diagnoses PROM (premature rupture of membranes) O42.90
--- NOTE | 2022-01-25 18:37 | Labor Progress Brief Note ---
Date of Service January 25, 2022 Subjective bloody show noted Assessment & Plan (1) PROM (premature rupture of membranes): Plan: 31 y/o G1 at 38 6/7 wga admitted w/ prom VSS Fetus cat 2 but still reassuring PROM - pit at 19, good progress. Will recheck in 30-1hr and see if complete GBS neg epidural in place Admission and Anticipated Discharge Date Admission Date: January 24, 2022 Physical Exam Genitourinary: Manual OB Exam: + cervical dilation (9.5), + cervical effacement 90% and + station + 1 OB Exam Monitor Tracing: + external FHT monitor used, + external uterine monitor used (q3-5) and + category II (135/min- mod/+accel/early and intermittent variables noted) Results & Data ([facility]) Vital Signs (Past 12 Hours) Vital Signs Temp Pulse Resp BP Pulse Ox 01/25/22 10:40 98.2 F 18 01/25/22 07:00 98.1 F 18 01/25/22 18:30 91 H 18 99 01/25/22 18:25 98 H 108/56 L 97 01/25/22 18:20 73 97 01/25/22 18:15 77 97 01/25/22 18:10 86 129/56 L 97 01/25/22 18:07 18 01/25/22 18:07 98.6 F 18 01/25/22 18:05 90 98 01/25/22 18:00 87 18 97 01/25/22 17:55 70 97 01/25/22 17:53 66 108/62 01/25/22 17:50 71 96 01/25/22 17:45 74 96 01/25/22 17:40 85 98 01/25/22 17:35 85 98 01/25/22 17:30 71 97 01/25/22 17:25 89 99 01/25/22 17:24 64 106/62 01/25/22 17:20 75 98 01/25/22 17:15 66 98 01/25/22 17:10 80 98 01/25/22 17:08 71 89/53 L 01/25/22 17:05 67 99 01/25/22 17:00 70 97 01/25/22 16:55 64 97 01/25/22 16:53 64 91/52 L 01/25/22 16:50 72 98 08/03/22 16:45 70 98 01/25/22 16:40 70 98 01/25/22 16:39 71 91/50 L 01/25/22 16:35 76 97 01/25/22 16:30 79 18 99 01/25/22 16:25 75 99 01/25/22 16:24 75 107/70 01/25/22 16:20 77 98 01/25/22 16:15 72 99 01/25/22 16:10 78 99 01/25/22 16:08 86 113/63 01/25/22 16:05 88 98 01/25/22 16:00 77 18 98 01/25/22 15:55 77 98 01/25/22 15:53 68 106/57 L 01/25/22 15:50 78 97 01/25/22 15:45 73 98 01/25/22 15:40 73 98 01/25/22 15:39 72 117/60 01/25/22 15:35 75 97 01/25/22 15:30 79 18 98 01/25/22 15:25 75 99 01/25/22 15:20 75 98 01/25/22 15:15 81 97 01/25/22 15:10 71 98 01/25/22 15:09 70 115/56 L 01/25/22 15:05 82 97 01/25/22 15:00 83 18 97 01/25/22 14:55 79 97 01/25/22 14:54 77 111/55 L 01/25/22 14:50 84 97 01/25/22 14:45 80 97 01/25/22 14:41 18 01/25/22 14:41 98.2 F 18 01/25/22 14:40 83 97 01/25/22 14:35 87 99 01/25/22 14:30 88 18 98 01/25/22 14:25 98 01/25/22 14:25 84 01/25/22 14:25 80 119/61 01/25/22 14:20 86 97 01/25/22 14:16 18 01/25/22 14:16 18 01/25/22 14:15 87 97 01/25/22 14:10 84 97 01/25/22 14:08 86 110/63 01/25/22 14:05 81 96 01/25/22 14:00 73 18 97 01/25/22 13:55 84 97 01/25/22 13:54 77 112/63 01/25/22 13:50 83 97 01/25/22 13:45 89 96 01/25/22 13:40 77 97 01/25/22 13:39 73 115/59 L 01/25/22 13:35 77 97 01/25/22 13:29 98.4 F 01/25/22 13:30 76 18 97 01/25/22 13:25 97 01/25/22 13:25 76 01/25/22 13:25 76 116/64 01/25/22 13:20 89 97 01/25/22 13:15 86 98 01/25/22 13:10 73 98 01/25/22 13:08 81 110/70 01/25/22 13:05 81 97 01/25/22 13:00 84 18 98 01/25/22 12:55 79 97 01/25/22 12:54 73 109/67 01/25/22 12:50 83 97 01/25/22 12:45 80 97 01/25/22 12:40 98 01/25/22 12:40 81 01/25/22 12:40 68 100/57 L 01/25/22 12:39 18 01/25/22 12:39 98.2 F 18 01/25/22 12:35 77 97 01/25/22 12:30 65 18 97 01/25/22 12:25 75 97 01/25/22 12:23 88 99/60 L 01/25/22 12:20 73 98 01/25/22 12:15 67 97 01/25/22 12:10 98 H 96 01/25/22 12:09 67 102/60 01/25/22 12:05 75 96 01/25/22 12:00 76 18 96 01/25/22 11:55 69 97 01/25/22 11:54 66 104/65 01/25/22 11:50 81 97 01/25/22 11:45 88 96 01/25/22 11:40 82 97 01/25/22 11:39 72 106/67 01/25/22 11:35 85 97 01/25/22 11:30 79 18 96 01/25/22 11:25 75 96 01/25/22 11:23 84 116/66 01/25/22 11:20 78 97 01/25/22 11:15 73 99 01/25/22 11:10 67 98 01/25/22 11:09 72 99/58 L 01/25/22 11:05 74 99 01/25/22 11:00 75 99 01/25/22 10:55 68 99 01/25/22 10:54 72 97/55 L 01/25/22 10:50 73 98 01/25/22 10:45 80 97 01/25/22 10:40 70 98 01/25/22 10:39 93 H 111/57 L 01/25/22 10:35 81 98 01/25/22 10:30 87 18 99 01/25/22 10:25 78 98 01/25/22 10:23 82 108/64 01/25/22 10:20 81 98 01/25/22 10:15 82 99 01/25/22 10:10 79 99 01/25/22 10:08 93 H 105/70 01/25/22 10:05 94 H 99 01/25/22 10:00 77 18 97 01/25/22 09:55 71 98 01/25/22 09:53 71 103/63 01/25/22 09:50 73 97 01/25/22 08:00 18 01/25/22 08:00 18 01/25/22 09:45 78 100 01/25/22 09:40 83 98 01/25/22 09:38 85 112/76 01/25/22 09:35 76 99 01/25/22 09:30 68 18 98 01/25/22 09:25 75 98 01/25/22 09:24 74 105/64 01/25/22 09:20 71 99 01/25/22 09:19 18 01/25/22 09:19 97.7 F 18 01/25/22 09:15 78 98 01/25/22 09:10 74 97/53 L 100 01/25/22 09:05 74 100 01/25/22 09:00 68 18 100 01/25/22 08:55 100 01/25/22 08:55 75 01/25/22 08:55 63 101/60 01/25/22 08:50 74 100 01/25/22 08:45 72 100 01/25/22 08:40 80 100 01/25/22 08:38 65 92/54 L 01/25/22 08:35 75 100 01/25/22 08:30 71 18 100 01/25/22 08:25 65 87/52 L 100 01/25/22 08:20 67 100 01/25/22 08:15 79 100 01/25/22 08:14 70 104/56 L 01/25/22 08:10 70 97 01/25/22 08:09 72 87/52 L 01/25/22 08:05 72 97 01/25/22 08:00 97 01/25/22 08:00 71 01/25/22 08:00 73 94 01/25/22 07:55 73 98 01/25/22 07:53 63 90/50 L 01/25/22 07:50 70 97 01/25/22 07:45 80 97 01/25/22 07:40 74 99 01/25/22 07:39 72 92/54 L 01/25/22 07:35 79 97 01/25/22 07:30 75 18 98 01/25/22 07:25 98 01/25/22 07:25 67 01/25/22 07:25 65 91/51 L 01/25/22 07:20 69 98 01/25/22 07:15 76 99 01/25/22 07:10 75 99 01/25/22 07:09 63 118/63 01/25/22 07:05 78 98 01/25/22 07:00 76 18 98 01/25/22 06:55 76 97 01/25/22 06:54 67 111/62 01/25/22 06:50 79 99 01/25/22 06:45 81 100 01/25/22 06:40 71 98 Coding Level of Care Code None Diagnoses PROM (premature rupture of membranes) O42.90
[2022-01-25] MEDS ORDERED: LIDOCAINE 1% LOCAL 20 ML VIAL ONE (21:35)
--- NOTE | 2022-01-25 22:03 | Delivery Summary ---
Vaginal Delivery Summary Date of Service January 25, 2022 Vaginal Delivery Summary and 2nd Degree LAC PREOPERATIVE DIAGNOSIS: 1. Single intrauterine at 38 6/7 2. Prolonged premature rupture of membranes POSTOPERATIVE DIAGNOSIS: 1. Single intrauterine at 38 6/7 2. Prolonged premature rupture of membranes 3. Delivered PROCEDURE: 1. Normal spontaneous vaginal delivery. SURGEON: Itzel Streeter MD ANESTHESIA: Epidural. ESTIMATED BLOOD LOSS: 300 mL FLUIDS: Continuous LR. URINE OUTPUT: None. COMPLICATIONS: None. CONDITION: Stable. INDICATIONS: 31 y/o G1 at 38 6/7 wga presented one day ago in the morning with premature rupture of membranes. Initially she desired expectant management and declined all interventions but did begin to accept pitocin last evening. Pitocin was titrated up and she received an epidural. She did allow for cervical check this morning and found to be 3cm. Pitocin did have to be turned off once this morning due to decel but was able to be titrated up. She continued to progress with pitocin and did eventually become complete and desired to push FINDINGS: A viable male , weight pending with Apgars of 7 and 9 at 1 and 5 minutes respectively. SPECIMEN: Cord blood OPERATIVE REPORT: The patient progressed to 10 cm, 100% effaced and +2 station, pushed over intact perineum with anesthesia to deliver a viable male infant, weight and Apgars as above. Head of delivered in JOSELUIS position. No nuchal cord was present but there was a compound hand. Body and shoulders were delivered without difficulty. was delivered to maternal abdomen and nursing staff. Delayed cord clamping was performed for 60 seconds. Cord was clamped and cut. Cord blood was obtained. Placenta delivered spontaneously intact with 3-vessel cord. IV oxytocin and fundal massage were given for excellent hemostasis. Vagina, cervix, perineum, and placenta were inspected. A second degree and left labial laceration were noted and repaired with 3-0 and 4- 0 vicryl respectively. There was excellent hemostasis. A hemostatic right labial laceration was noted as well. Sponge and needle counts correct x2. No sponges were left behind. Mother and stable in immediate period. [facility] [place] Charge Vaginal Delivery Codes: 45041 global code for the antepartum, delivery, and post- Delivery Type Details: and 2nd Degree LAC
[2022-01-25] MEDS ORDERED: HYDROCORTISONE ACETATE 25 MG SUPP PR PRN (22:35)
[2022-01-25] MEDS ORDERED: ACETAMINOPHEN 325 MG TAB PO PRN (22:35)
[2022-01-25] MEDS ORDERED: OXYTOCIN 30 UNITS/500 ML BAG IV PRN (22:35)
[2022-01-25] MEDS ORDERED: DIPHTHERIA/TETANUS/PERTUSSIS 0.5 ML SYR/VIAL IM ONE (22:35)
[2022-01-25] MEDS ORDERED: BENZOCAINE 20% AER SPR 82.5 GM CAN EXT PRN (22:35)
[2022-01-25] MEDS ORDERED: bisacodyL 10 MG SUPP PR PRN (22:35)
[2022-01-25] MEDS: IBUPROFEN 600 MG TAB PO PRN (22:53)
--- NOTE | 2022-01-26 05:27 | Obstetrical Progress Note ---
Date of Service <Mae Zarco DO - Last Filed: 01/26/22 06:05> January 26, 2022 Assessment & Plan <Mae Zarco DO - Last Filed: 01/26/22 06:05> (1) state: Patient is PPD 1 s/p and doing well. - Eating well, voiding well, ambulating well - Vitals reviewed and within normal limits. No elevated temps - Pain well controlled with ibuprofen 600 mg Q4H PRN - OOB, ambulation, diet progression as tolerated - Blood type: A+, GBS neg, rubella immune - Plan to discharge tomorrow - After discharge, 6 week follow up with Dr. Streeter (2) PROM (premature rupture of membranes): <Itzel Streeter MD - Last Filed: 01/26/22 07:14> (1) state: (2) PROM (premature rupture of membranes): Subjective <Mae Zarco DO - Last Filed: 01/26/22 06:05> Nadira Truong is a 31 yo female who is now PPD #1 following spontaneous vaginal delivery at 38 weeks. Reports feeling well this morning. She endorses some abdominal cramping and 8/10 pain managed on analgesics. Voiding well with some burning. Tolerating regular meals overnight and able to ambulate some. She has not passed gas and has not had any bowel movements. Persistent lochia with some improvement this morning. Currently breast feeding. Review of Systems Denies fever, chills, sweats. Denies SOB, difficulty breathing, chest pain, palpitations, and chest pressure. Denies breast pain. Denies dysuria. Denies headache or changes in vision. Physical Exam <Mae Zarco DO - Last Filed: 01/26/22 06:05> General: Alert and oriented. No acute distress. CV: Regular rate and rhythm. No murmurs. Respiratory: CTA bilaterally. No rhonchi, wheezes, or crackles. No increased work of breathing. Abdomen: Positive bowel sounds. Soft, nontender, non distended. Uterus: Fundus firm and palpable 1 cm below the umbilicus. Lower extremities: No LE edema. No deep calf pain. Bharti's negative bilaterally. Results & Data ([facility]) <Mae Zarco, DO - Last Filed: 01/26/22 06:05> Vital Signs (Past 12 Hours) Vital Signs Temp Pulse Pulse Resp BP BP Pulse Ox 01/26/22 03:33 36.6 C 70 16 98/64 L 97 01/26/22 00:30 36.9 C 86 18 100/68 97 01/25/22 23:50 36.8 C 18 01/25/22 23:20 18 01/25/22 22:50 80 18 105/67 01/25/22 22:35 18 01/25/22 22:20 18 01/25/22 22:05 18 01/25/22 21:50 18 01/25/22 19:02 36.8 C 18 01/25/22 19:02 01/25/22 23:48 87 118/63 01/25/22 23:38 89 116/66 01/25/22 23:23 83 115/63 01/25/22 22:38 80 105/67 01/25/22 22:23 79 100/58 L 01/25/22 22:08 81 106/61 01/25/22 21:53 79 104/57 L 01/25/22 21:51 74 99/56 L 01/25/22 21:45 86 100 01/25/22 21:40 80 99 01/25/22 21:38 82 109/58 L 01/25/22 21:35 88 99 01/25/22 21:30 89 100 01/25/22 21:25 92 H 99 01/25/22 21:23 86 114/67 01/25/22 21:20 88 99 01/25/22 21:11 20 01/25/22 21:11 20 01/25/22 21:15 96 01/25/22 21:15 80 01/25/22 21:15 87 118/71 01/25/22 21:10 160 H 99 01/25/22 21:05 99 H 98 01/25/22 21:00 36.8 C 83 95 01/25/22 20:55 86 97 01/25/22 20:52 75 91 01/25/22 20:50 93 H 96 01/25/22 20:45 106 H 97 01/25/22 20:40 120 H 97 01/25/22 20:35 98 H 97 08/03/22 20:30 105 H 20 100 01/25/22 20:29 109 H 89 L 01/25/22 20:25 100 01/25/22 20:25 99 H 01/25/22 20:25 88 122/66 01/25/22 20:24 128 H 92 01/25/22 20:20 103 H 100 01/25/22 20:15 92 H 100 01/25/22 20:12 110 H 91 01/25/22 20:10 97 H 100 01/25/22 20:07 102 H 85 L 01/25/22 20:05 91 H 100 01/25/22 20:01 100 H 92 01/25/22 20:00 75 20 99 01/25/22 19:55 84 100 01/25/22 19:53 77 143/86 H 01/25/22 19:50 90 01/25/22 19:50 82 01/25/22 19:50 86 92 01/25/22 19:45 75 20 100 01/25/22 19:40 100 01/25/22 19:40 71 01/25/22 19:40 65 100/58 L 01/25/22 19:35 104 H 100 01/25/22 19:30 69 100 01/25/22 19:25 80 99 01/25/22 19:20 66 99 01/25/22 19:15 70 100 01/25/22 19:10 78 100 01/25/22 19:08 81 111/69 01/25/22 19:05 66 98 01/25/22 19:00 36.8 C 74 18 99 01/25/22 18:55 82 117/52 L 98 01/25/22 18:50 80 98 01/25/22 18:45 69 98 01/25/22 18:40 68 99 01/25/22 18:39 69 103/52 L 01/25/22 18:35 82 98 01/25/22 18:30 91 H 18 99 01/25/22 18:25 98 H 108/56 L 97 01/25/22 18:20 73 97 01/25/22 18:15 77 97 01/25/22 18:10 86 129/56 L 97 01/25/22 18:07 18 01/25/22 18:07 37.0 C 18 01/25/22 18:05 90 98 01/25/22 18:00 87 18 97 01/25/22 17:55 70 97 01/25/22 17:53 66 108/62 01/25/22 17:50 71 96 01/25/22 17:45 74 96 01/25/22 17:40 85 98 01/25/22 17:35 85 98 01/25/22 17:30 71 97 O2 Del Method 01/26/22 03:33 Room Air 01/26/22 00:30 Room Air 01/25/22 23:50 01/25/22 23:20 01/25/22 22:50 01/25/22 22:35 01/25/22 22:20 01/25/22 22:05 01/25/22 21:50 01/25/22 19:02 01/25/22 19:02 Room Air 01/25/22 23:48 01/25/22 23:38 01/25/22 23:23 01/25/22 22:38 01/25/22 22:23 01/25/22 22:08 01/25/22 21:53 01/25/22 21:51 01/25/22 21:45 01/25/22 21:40 01/25/22 21:38 01/25/22 21:35 01/25/22 21:30 01/25/22 21:25 01/25/22 21:23 01/25/22 21:20 01/25/22 21:11 01/25/22 21:11 01/25/22 21:15 01/25/22 21:15 01/25/22 21:15 01/25/22 21:10 01/25/22 21:05 01/25/22 21:00 01/25/22 20:55 01/25/22 20:52 01/25/22 20:50 01/25/22 20:45 01/25/22 20:40 01/25/22 20:35 01/25/22 20:30 01/25/22 20:29 01/25/22 20:25 01/25/22 20:25 01/25/22 20:25 01/25/22 20:24 01/25/22 20:20 01/25/22 20:15 01/25/22 20:12 01/25/22 20:10 01/25/22 20:07 01/25/22 20:05 01/25/22 20:01 01/25/22 20:00 01/25/22 19:55 01/25/22 19:53 01/25/22 19:50 01/25/22 19:50 01/25/22 19:50 01/25/22 19:45 01/25/22 19:40 01/25/22 19:40 01/25/22 19:40 01/25/22 19:35 01/25/22 19:30 01/25/22 19:25 01/25/22 19:20 01/25/22 19:15 01/25/22 19:10 01/25/22 19:08 01/25/22 19:05 01/25/22 19:00 01/25/22 18:55 01/25/22 18:50 01/25/22 18:45 01/25/22 18:40 01/25/22 18:39 01/25/22 18:35 01/25/22 18:30 01/25/22 18:25 01/25/22 18:20 01/25/22 18:15 01/25/22 18:10 01/25/22 18:07 01/25/22 18:07 01/25/22 18:05 01/25/22 18:00 01/25/22 17:55 01/25/22 17:53 01/25/22 17:50 01/25/22 17:45 01/25/22 17:40 01/25/22 17:35 01/25/22 17:30 <Itzel Streeter MD - Last Filed: 01/26/22 07:14> Co-Signing Physician Notes Resident Physician Supervision Note: I interviewed and examined the patient. Discussed with Dr. Zarco and agree with findings and plan as documented in the note. Any exceptions or clarifications are listed here: PP1 s/p , doing well. VSS, exam benign and wnl. Continue routine pp care. Documented By: Itzel Streeter MD Resident Activity Tracking <Mae Zarco DO - Last Filed: 01/26/22 06:05> Resident Involvement: Resident Care Provided Care Provided: OB Delivery
[2022-01-26] MEDS: IBUPROFEN 600 MG TAB PO PRN ×4 (05:50→23:25)
[2022-01-26] MEDS: PRENATAL VITAMIN 1 TAB PO SCH (07:59)
[2022-01-26] MEDS: DOCUSATE SODIUM 100 MG CAP PO SCH ×2 (07:59→20:19)
--- NOTE | 2022-01-26 10:45 | Anesthesia Procedure Note ---
Date of Service January 26, 2022 Anesthesia Post Epidural Note Vital Signs Vital Signs: Temp Pulse Resp BP Pulse Ox O2 Del Method 97.5 F L 90 18 115/80 97 01/26/22 07:35 01/26/22 07:35 01/26/22 07:35 01/26/22 07:35 01/26/22 03:33 01/26/22 07:35 Pain Intensity Bilateral Episiotomy/Laceration: Pain Intensity: 8 Notes Mental Status: alert / awake / arousable and participated in evaluation Nausea / Vomiting: adequately controlled Pain: adequately controlled Airway Patency, RR, SpO2: stable & adequate BP & HR: stable & adequate Hydration State: stable & adequate Neuraxial Anesthesia: was administered and sensory block is resolving Anesthetic Complications: no major complications apparent and Pt Satisfied with anesthetic care Epidural: Removed without complications and With tip intact
[2022-01-26] MEDS ORDERED: bisacodyL 5 MG TABEC PO SCH (20:00)
--- NOTE | 2022-01-27 05:25 | Obstetrical Progress Note ---
Date of Service <Mae RamDO andrés - Last Filed: 01/27/22 06:21> January 27, 2022 Assessment & Plan <Mae RamDO andrés - Last Filed: 01/27/22 06:21> (1) state: Patient is PPD 2 s/p and doing well. - Eating well, voiding well, ambulating well - Vitals reviewed and within normal limits. No increased temp. - Pain well controlled with ibuprofen 600 mg Q4H PRN - OOB, ambulation, diet progression as tolerated - Blood type: A+, GBS neg, rubella immune - Plan to discharge today - After discharge, 6 week follow up with Dr. Streeter <Danette Bergman MD - Last Filed: 01/27/22 07:05> (1) state: Subjective <Mae RamDO andrés - Last Filed: 01/27/22 06:21> Patient is a 31 yo female who is now PPD #2 following spontaneous vaginal delivery at 38 weeks. Reports feeling well this morning. She has 3-4/10 vaginal pain well managed on analgesics. Voiding well. Tolerating regular meals overnight and able to ambulate some. She has passed gas and had bowel movements. Persistent lochia with some improvement this morning. Currently breast feeding. Review of Systems Denies fever, chills, sweats. Denies SOB, difficulty breathing, chest pain, palpitations, and chest pressure. Denies breast pain. Denies dysuria. Denies headache or changes in vision. Physical Exam <Mae Del CidShon YoDO andrés - Last Filed: 01/27/22 06:21> General: Alert and oriented. No acute distress. CV: Regular rate and rhythm. No murmurs. Respiratory: CTA bilaterally. No rhonchi, wheezes, or crackles. No increased work of breathing. Abdomen: Positive bowel sounds. Soft, nontender, non distended. Uterus: Fundus firm and palpable 1 cm below the umbilicus. Lower extremities: No LE edema. No deep calf pain. Bharti's negative bilaterally. Results & Data ([facility]) <Mae Del CidShon Zarco DO - Last Filed: 01/27/22 06:21> Vital Signs (Past 12 Hours) Vital Signs Temp Pulse Resp BP 01/26/22 23:40 36.7 C 77 16 96/63 L 01/26/22 20:00 36.7 C 88 18 111/79 <Danette Bergman MD - Last Filed: 01/27/22 07:05> Co-Signing Physician Notes Resident Physician Supervision Note: I interviewed and examined the patient. Discussed with Dr. Zarco and agree with findings and plan as documented in the note. Any exceptions or clarifications are listed here: [ ] Documented By: Danette Bergman MD, FACOG Resident Activity Tracking <Mae Zarco, - Last Filed: 01/27/22 06:21> Resident Involvement: Resident Care Provided Care Provided: OB Delivery
[2022-01-27] MEDS: IBUPROFEN 600 MG TAB PO PRN (05:57)
[2022-01-27] MEDS: PRENATAL VITAMIN 1 TAB PO SCH (08:52)
[2022-01-27] MEDS: DOCUSATE SODIUM 100 MG CAP PO SCH (08:52)
== END 2022-01-27 13:40 | disposition home or self-care (01) | DRG 807 ==
LOC: OPB 11:46 → 4S1 11:47 → 4E2 01-26
DX: Z3A.38 38 weeks gestation of pregnancy; Z80.3 Family history of malignant neoplasm of breast; O42.02 Full-term premature rupture of membranes, onset of labor within 24 hours of rupture; Z86.16 Personal history of COVID-19; O70.0 First degree perineal laceration during delivery; Z37.0 Single live birth; O32.8XX0 Maternal care for other malpresentation of fetus, not applicable or unspecified